=== PATIENT | female | born 1950 | race Hispanic/Latino ===

== ENCOUNTER 2017-10-11 16:54 | Emergency (ER) | payer MEDICARE ==
[~2017-10-11 16:54] MED LIST: DOCU-116 PO; FERS325 PO; TYL3 PO
[2017-10-11] MEDS ORDERED: CLINDAMYCIN 600 MG/D5% WATER 50 ML IV ONE (17:27)
[2017-10-11] MEDS ORDERED: HYDROCODONE/ACETAMINOPHEN 10/325 MG TAB ONE (17:28)
[2017-10-11 17:29] LABS: BASOPHILS % (AUTO) 0.1 % (0.0-5.0); EOSINOPHILS % (AUTO) 0.1 % (0.0-8.0); HEMATOCRIT 36.2 % (36-48); LYMPHOCYTES % (AUTO) 4.9 % (21.0-51.0); MEAN CORPUSCULAR HGB CONC 34.3 g/dL (32.0-36.0); MEAN CORPUSCULAR VOLUME 87.5 fL (79-99); MONOCYTES % (AUTO) 5.2 % (3.0-13.0); NEUTROPHILS % (AUTO) 89.7 % (40.0-77.0); PLATELET COUNT (AUTO) 170 K/uL (130-400); RED BLOOD CELL COUNT(AUTO) 4.14 MIL/uL (4.00-5.50); RED CELL DISTRIBUTION WIDTH 13.4 % (11.0-15.5); WHITE BLOOD COUNT (AUTO) 8.5 K/uL (4.8-10.8)
[2017-10-11 17:41] LABS: CREATININE 0.7 mg/dL (0.5-1.5); POTASSIUM 3.9 mmol/L (3.5-5.1)
[2017-10-11 17:46] LABS: ALBUMIN 4.4 g/dL (3.5-5.0); BILIRUBIN,TOTAL 1.1 mg/dL (0.2-1.0); TOTAL PROTEIN, SERUM 8.1 g/dL (6.0-8.3)
== END 2017-10-11 18:40 | disposition home or self-care (01) ==
LOC: EDH 16:54
DX: K04.7 Periapical abscess without sinus (principal); L03.211 Cellulitis of face; R50.9 Fever, unspecified; Z88.0 Allergy status to penicillin
CPT/HCPCS: 36415; 80053; 83605; 85025; 87040 ×2; 93005; 96365; 99285; J3490

== ENCOUNTER 2018-02-08 08:46 | Emergency (ER) | payer MEDICARE ==
[2018-02-08] MEDS ORDERED: SODIUM CHLORIDE 0.9% 500ML 500 ML IV ONE (09:32)
[2018-02-08] MEDS ORDERED: CLINDAMYCIN 600 MG/D5% WATER 50 ML IV ONE (09:32)
[2018-02-08] MEDS ORDERED: KETOROLAC TROMETHAMINE 15MG/ML ONE (09:32)
== END 2018-02-08 10:18 | disposition home or self-care (01) ==
LOC: EDH 08:46
DX: K04.7 Periapical abscess without sinus (principal); Z88.0 Allergy status to penicillin; Z90.49 Acquired absence of other specified parts of digestive tract; Z79.899 Other long term (current) drug therapy
CPT/HCPCS: 96365; 96375; 99284; J1885; J3490; J7040

== ENCOUNTER → 2018-10-20 | Outpatient (CLI) | payer MEDICARE | END | disposition home or self-care (01) | LOC: SHCH 08:34 | PROVIDERS: ATTEND Internal Medicine Cardiovascular Disease | DX: I11.9 Hypertensive heart disease without heart failure (principal); R06.09 Other forms of dyspnea | CPT/HCPCS: 93306 ==

== ENCOUNTER 2020-09-21 07:28 | Observation (INO) | payer MEDICARE ==
[~2020-09-21] VITALS: Ht 167.6 cm; Wt 72.3 kg
[2020-09-21 07:43] LABS: BASOPHILS % (AUTO) 0.3 % (0.0-5.0); EOSINOPHILS % (AUTO) 0.1 % (0.0-8.0); HEMATOCRIT 36.1 % (36-48); LYMPHOCYTES % (AUTO) 8.9 % (21.0-51.0); MEAN CORPUSCULAR HEMOGLOBIN 30.5 pg (27.0-33.0); MEAN CORPUSCULAR HGB CONC 32.7 g/dL (32.0-36.0); MEAN CORPUSCULAR VOLUME 93.3 fL (79-99); MONOCYTES % (AUTO) 5.7 % (3.0-13.0); NEUTROPHILS % (AUTO) 84.4 % (40.0-77.0); PLATELET COUNT (AUTO) 167 K/uL (130-400); RED BLOOD CELL COUNT(AUTO) 3.87 MIL/uL (4.00-5.50); RED CELL DISTRIBUTION WIDTH 12.8 % (11.0-15.5); WHITE BLOOD COUNT (AUTO) 8.8 K/uL (4.8-10.8)
[2020-09-21 07:55] LABS: CREATININE 0.7 mg/dL (0.5-1.5); POTASSIUM 3.4 mmol/L (3.5-5.1)
[2020-09-21 07:59] LABS: ALBUMIN 4.3 g/dL (3.5-5.0); BILIRUBIN,TOTAL 0.6 mg/dL (0.2-1.0)
[2020-09-21] MEDS ORDERED: ONDANSETRON ODT 4 MG TAB ONE (08:43)
[2020-09-21 08:46] LABS: APPEARANCE,URINE CLEAR (CLEAR); BILIRUBIN,URINE NEGATIVE (NEGATIVE); COLOR,URINE YELLOW (YELLOW); GLUCOSE, URINE (UA) NEGATIVE (NEGATIVE); KETONES,URINE 5 mg/dL (NEGATIVE); LEUKOCYTE ESTERASE ,URINE TRACE (NEGATIVE); NITRATE,URINE NEGATIVE (NEGATIVE); OCCULT BLOOD,URINE TRACE-LYSED (NEGATIVE); PH,URINE 6.5 (5.0-8.0); PROTEIN,URINE NEGATIVE (NEGATIVE); UROBILINOGEN,URINE 0.2 mg/dL (0.2-1.0)
[2020-09-21 09:07] LABS: BACTERIA,URINE Rare /HPF (None Seen); RBC,URINE 0-1 /HPF (0-1); SQUAMOUS EPITHELIAL CELL,UR Rare /HPF (0-2)
[2020-09-21] MEDS ORDERED: ACETAMINOPHEN 325 MG TAB ONE ×3 (09:33→19:55)
[2020-09-21] MEDS ORDERED: POTASSIUM CHLORIDE 10MEQ/100ML 100 ML IV PRN (11:15)
[2020-09-21] MEDS ORDERED: LIDOCAINE HCL-MPF 1% 2ML VIAL IV PRN (11:15)
[2020-09-21] MEDS ORDERED: LACTULOSE 20 GM/30 ML UDCUP PO PRN (11:15)
[2020-09-21] MEDS ORDERED: POTASSIUM CHLORIDE 20 MEQ ERTAB PO PRN (11:15)
[2020-09-21] MEDS ORDERED: ACETAMINOPHEN 325 MG TAB PO PRN (11:15)
[2020-09-21] MEDS ORDERED: ONDANSETRON HCL 4 MG/2 ML VIAL IV PRN (11:15)
[2020-09-21] MEDS ORDERED: POTASSIUM CHLORIDE 10% ELIXIR 20 MEQ/15 ML UDCUP PO PRN (11:15)
[2020-09-21 11:36] LABS: INR 1.1 (0.85-1.15); PROTHROMBIN TIME 11.9 SEC (9.6-11.6)
[2020-09-21 11:37] LABS: PARTIAL THROMBOPLASTIN TIME 26.4 SEC (26.3-35.5)
[2020-09-21 11:40] LABS: HEMOGLOBIN A1C 5.7 % (4.0-6.0)
[2020-09-21 11:49] LABS: THYROID STIMULATING HORMONE 3.32 uIU/mL (0.36-3.74)
[2020-09-21] MEDS ORDERED: ATORVASTATIN CALCIUM 20 MG TABLET PO SCH (21:00)
[2020-09-21] MEDS ORDERED: FAMOTIDINE 20MG TAB 20 MG TAB ONE (22:39)
[2020-09-21] MEDS ORDERED: ATORVASTATIN CALCIUM 20 MG TABLET ONE (22:39)
[2020-09-22] MEDS ORDERED: ONDANSETRON HCL 4 MG/2 ML VIAL ONE (05:22)
[2020-09-22 05:52] LABS: BASOPHILS % (AUTO) 0.6 % (0.0-5.0); EOSINOPHILS % (AUTO) 1.2 % (0.0-8.0); HEMATOCRIT 33.7 % (36-48); LYMPHOCYTES % (AUTO) 25.1 % (21.0-51.0); MEAN CORPUSCULAR HEMOGLOBIN 30.4 pg (27.0-33.0); MEAN CORPUSCULAR VOLUME 94.9 fL (79-99); MONOCYTES % (AUTO) 8.8 % (3.0-13.0); NEUTROPHILS % (AUTO) 63.9 % (40.0-77.0); PLATELET COUNT (AUTO) 150 K/uL (130-400); RED BLOOD CELL COUNT(AUTO) 3.55 MIL/uL (4.00-5.50); RED CELL DISTRIBUTION WIDTH 12.8 % (11.0-15.5); WHITE BLOOD COUNT (AUTO) 5.1 K/uL (4.8-10.8)
[2020-09-22 06:04] LABS: CREATININE 0.7 mg/dL (0.5-1.5); POTASSIUM 3.8 mmol/L (3.5-5.1)
[2020-09-22] MEDS ORDERED: AMLODIPINE BESYLATE 5 MG TAB ONE (06:38)
[2020-09-22] MEDS ORDERED: FERR-72 PO (08:44)
[2020-09-22] MEDS ORDERED: MAG HYDROX/AL HYDROX/SIMETH ES 30 ML SUSP UDCUP PO SCH (09:00)
[2020-09-22] MEDS: ASPIRIN 325 MG TABLET PO SCH (09:00)
[2020-09-22] MEDS ORDERED: MAG HYDROX/AL HYDROX/SIMETH ES 30 ML SUSP UDCUP ONE (11:11)
[2020-09-22] MEDS ORDERED: ASPIRIN 81MG TAB.CHEW ONE (11:12)
[2020-09-22] MEDS ORDERED: FAMOTIDINE 20MG TAB 20 MG TAB ONE ×2 (11:13→20:26)
[2020-09-22] MEDS ORDERED: ACETAMINOPHEN 325 MG TAB ONE ×2 (14:31→20:26)
[2020-09-22 19:05] LABS: HEMOGLOBIN A1C 5.5 % (4.0-6.0)
[2020-09-22] MEDS ORDERED: ATORVASTATIN CALCIUM 20 MG TABLET ONE (20:26)
[2020-09-22] MEDS: FAMOTIDINE 20MG TAB 20 MG TAB PO SCH (21:00)
[2020-09-23 00:28] VITALS: BP 170/73
[2020-09-23] MEDS ORDERED: ACET-2247 PO (00:53)
[2020-09-23] MEDS ORDERED: ASPI-1197 PO ×2 (00:53→14:41)
[2020-09-23] MEDS: ACETAMINOPHEN 325 MG TAB PO PRN ×2 (01:50→16:15)
[2020-09-23 04:00] VITALS: BP 135/57
[2020-09-23 07:30] VITALS: BP 176/73
[2020-09-23] MEDS: FAMOTIDINE 20MG TAB 20 MG TAB PO SCH (08:54)
[2020-09-23] MEDS: ASPIRIN 325 MG TABLET PO SCH (08:55)
[2020-09-23] MEDS ORDERED: AMLODIPINE BESYLATE 5 MG TAB PO SCH (09:00)
[2020-09-23 11:00] VITALS: BP 147/62
[2020-09-23] MEDS ORDERED: ATOR20TA PO (14:41)
[2020-09-23] MEDS ORDERED: AMLO-258 PO (14:41)
[2020-09-23 16:00] VITALS: BP 141/50
== END 2020-09-23 19:00 | disposition home or self-care (01) ==
LOC: EDH 07:28 → EDHIP 11:14 → 4BH 09-23 00:28
PROVIDERS: ADMIT Internal Medicine; ATTEND Internal Medicine
DX: I63.9 Cerebral infarction, unspecified (principal); E87.6 Hypokalemia; E78.5 Hyperlipidemia, unspecified; R03.0 Elevated blood-pressure reading, without diagnosis of hypertension; R55 Syncope and collapse; Z90.49 Acquired absence of other specified parts of digestive tract; Z88.0 Allergy status to penicillin
CPT/HCPCS: 36415 ×2; 70450; 70544; 70547; 70551; 71045; 80048; 80053; 80061; 81001; 82150; 82550; 83036 ×2; 83605 ×2; 83690; 83735; 84443; 84484 ×5; 85025 ×2; 85610; 85730; 93005 ×2; 97161; 99285; C8929; G0378 ×55; G8978; G8979; G8980; G8981; G8982; G8983; J2405; 93356; 96374